=== PATIENT | male | born 1945 | race Caucasian/White ===

== ENCOUNTER → 2016-04-08 | Outpatient (CLI) | payer BC ==
[~2016-04-08] MED LIST: ALFU10TA30 PO; CMD5 PO; CYAN100020 PO; FINA5TAB PO; FLV1 PO; HYDR-5688 PO; RANI150T3 PO; WARF-237 PO
[2016-04-08 12:48] LABS: ESTIMATED AVERAGE GLUCOSE 126 mg/dl; HA1C FLAG Normal (Normal)
== END | disposition home or self-care (01) ==
LOC: C.LABPVFM 13:43
PROVIDERS: ATTEND Family Medicine
DX: R73.09 Other abnormal glucose (principal); I26.99 Other pulmonary embolism without acute cor pulmonale

== ENCOUNTER → 2017-02-11 | Outpatient (CLI) | payer BC ==
[~2017-02-11] MED LIST changes: +ALFU10TA2 PO; -ALFU10TA30 PO
[2017-02-12 06:39] LABS: ESTIMATED AVERAGE GLUCOSE 123 mg/dl; HA1C FLAG Normal (Normal)
== END | disposition home or self-care (01) ==
LOC: C.LABPVFM 14:51
PROVIDERS: ATTEND Family Medicine
DX: I26.99 Other pulmonary embolism without acute cor pulmonale (principal)

== ENCOUNTER → 2017-03-14 | Outpatient (CLI) | payer BC | END | disposition home or self-care (01) | LOC: C.LABPVFM 13:24 | PROVIDERS: ATTEND Urology | DX: R97.20 Elevated prostate specific antigen [PSA] (principal); I26.99 Other pulmonary embolism without acute cor pulmonale ==

== ENCOUNTER 2022-02-11 16:04 | Inpatient (IN) ==
--- NOTE | 2022-02-11 17:24 | XRay Report ---
XR chest 1V portable HISTORY: 76 years-old Male SOB acute shortness of breath COMPARISON: Chest radiograph 11/01/2019 TECHNIQUE: Portable AP view of the chest FINDINGS: Cardiac silhouette is enlarged. Mild chronic interstitial coarsening of the lung bases. Hiatal hernia . No pneumothorax, pleural effusion or overt pulmonary edema. No airspace consolidation typical for p neumonia. Degenerative changes of the shoulders and spine. IMPRESSION: 1. Cardiomegaly without acute process. 2. Hiatal hernia. ACT 112: Negative or not required by law. The above report was generated using voice recognition software. It may contain grammatical, syntax o r spelling errors. Electronically signed by: Diego Mckeon M.D. 02/11/2022 5:23 PM
[2022-02-11 17:50] LABS: Partial Thromboplastin Ratio 0.9; Partial Thromboplastin Time 23.7 Seconds (21.0-31.0); Prothrombin Time 10.5 Seconds (9.0-12.0)
[2022-02-11 17:57] LABS: Hematocrit (blood only) 41.9 % (40.1-51.0); Mean Corpuscular Hemoglobin 30.6 pg (25.0-34.0); Mean Corpuscular Hgb Conc 33.4 g/dL (32.0-36.0); Mean Corpuscular Volume 91.5 fL (80.0-100.0); Mean Platelet Volume 9.7 fL (9.4-12.4); Platelet Count 148 K/uL (130-400); RDW Coefficient of Variation 12.8 % (11.5-14.5); RDW Standard Deviation 42.6 fL (36.4-46.3); Red Blood Count 4.58 M/uL (4.63-6.08); White Blood Count 4.68 K/ul (4.8-10.8)
[2022-02-11 17:59] LABS: Basophils # (auto) 0.04 K/uL (0-0.2); Basophils % (auto) 0.9 %; Eosinophils # (auto) 0.19 K/uL (0-0.50); Eosinophils % (auto) 4.1 %; Immature Granulocytes # (auto) 0.02 K/uL (0.00-0.02); Immature Granulocytes % (auto) 0.4 %; Lymphocytes # (auto) 1.08 K/uL (1.2-3.4); Lymphocytes % (auto) 23.1 %; Monocytes # (auto) 0.52 K/uL (0.24-0.82); Monocytes % (auto) 11.1 %; Neutrophils # (auto) 2.83 K/uL (1.4-6.5); Neutrophils % (auto) 60.4 %
[2022-02-11 18:11] LABS: Albumin Globulin Ratio 1.4 (0.9-2); BUN Creatinine Ratio 20.5 (10-20); Bilirubin,Total 0.4 mg/dl (0.2-1.0); Calcium 9.1 mg/dl (8.5-10.1); Creatinine Clr Calc Pharmacy 103.4 ml/min; Est GFR (African American) 105.9 ml/min; Est GFR (Non-African American) 91.4 ml/min; Globulin 2.9 gm/dl (2.5-4.0); Potassium 3.4 mmol/L (3.5-5.1); Total Protein 6.9 gm/dl (6.0-8.3); Troponin I High Sensitivity 8.5 pg/ml (0-20)
[2022-02-11] MEDS ORDERED: OPTIRAY 320 500ml IV ONE (20:41)
[2022-02-11] MEDS ORDERED: SODIUM CHLORIDE 0.9% 1000ML 1,000 ML IV ONE (21:08)
[2022-02-11] MEDS ORDERED: ALBUT/IPRATROP 3MG/0.5MG NEB 3 ML VIAL NEB STA (21:08)
[2022-02-11] MEDS ORDERED: BENZONATATE 100 MG CAPSULE PO ONE (21:09)
--- NOTE | 2022-02-11 21:14 | Emergency Department Note ---
Impression & Plan Pulmonary emboli, NATHAN (dyspnea on exertion) ED Provider Note NAME: ARTURO SHAFFER AGE: 76 SEX: M : 1945 ARRIVES VIA: Walk-In INFORMANT: Patient, ED PROVIDER(S): [Praveen Patrick MD] Chief Complaint: SOB, outpatient referral HPI: Patient presents due to concern for shortness of breath. The patient states that he does not have this at rest but it is exertional in nature. The patient has had an ongoing for approximately 3 weeks this began when he had developed COVID. Patient is not vaccinated. The patient has had a productive cough but states that it is generally clear sputum. Non-smoker. Patient had discussed this with his primary care doctor and was referred here for further evaluation and treatment. The patient is a prior history of PEs in the past and had not been on anticoagulation for several years but had sustained a traumatic head bleed 3 to 4 years ago and was taken off of them. Patient denies any chest pains. Patient denies any orthopnea leg swelling or calf pain. No recent surgeries procedures or hospitalizations. Patient has taken [id number] medications but has not achieved significant relief in his symptoms. Patient denies any falls or trauma. No additional exacerbating or remitting factors. ROS: See HPI for pertinent positives and negatives. A total of 10 systems were reviewed and otherwise negative. Past medical history: See below Surgical history: See below Social history: See below Physical Exam: GENERAL: NAD, [wearing a mask,] non-toxic. Wearing glasses. EYE EXAM: Normal conjunctiva. PERRL, no anisocoria and EOM's grossly intact w/o pain. NECK: Supple, no nuchal rigidity, no adenopathy, non-tender. No signs of meningismus. FROM of the neck with good chin to chest and neck extension. No stridor. LUNGS: Clear to auscultation. Normal chest wall mechanics. HEART: Tachycardic and regular, no MRG. ABDOMEN: Abdomen soft, non-tender, normo-active bowel sounds, no masses, no rebound or guarding. BACK: No CVA TTP. SKIN: No rashes and no bruising. UPPER EXTREMITIES: Upper extremities are grossly normal. LOWER EXTREMITIES: Grossly normal, no edema. Negative Martita's sign b/l. NEURO EXAM: A&O x3, cranial nerves II-XII grossly intact, normal speech, moves all 4 extremities. Differential diagnoses: Reactive airway disease, pneumonia, pneumothorax, COPD, CHF, infections, cardiac ischemia, pulmonary embolism, musculoskeletal, gastrointestinal, as well as other pathologies. Course: Patient was seen and evaluated the bedside. Full history physical exam was performed. EKG interpreted by me Sinus tachycardia, rate of 103, prolonged [place], normal QRS, normal axis. No ST elevations. Imaging Studies: See Below Cardiac monitoring: An order was placed for continuous cardiac monitoring. The monitor shows a rate of 102 with tachycardic and regular rhythm. MDM: Patient was seen due to concern for exertional shortness of breath. Blood work was obtained along with a CT angiography of the chest. Patient's blood work showed mild leukopenia with no anemia. Platelet count is normal. The patient's kidney function is unremarkable. Troponin is not elevated. The patient's chest x-ray with no significant findings and CT angiography of the chest was concerning for extensive pulmonary emboli. The patient has been off his blood thinning medication for several years and he has not had a recent traumatic ICH and states that this did occur several years ago. Currently I do believe that the benefits outweigh the risks as the patient does have extensive PEs. Heparin standard was ordered with no bolus. I did speak the on-call hospitalist Dr. Page and the patient was admitted to the medicine service. I did update the patient of the findings and he is comfortable with plan of care. Critical Care: I have personally spent 42 minutes of critical care time in direct management of this patient. This includes bedside care, interpretation of diagnostic studies, and testing, discussion with consultants, patient, and family members, and other require inpatient management activities. This 42 minutes is in excess of all separately billable procedures. 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 Surgical History H/O shoulder surgery Rt History of appendectomy (05/17/12) History of foot surgery Left History of knee replacement Rt History of right inguinal hernia repair History of surgery endovascular embolization of left middle meningeal artery Family History Mother Diabetes Other No family history of adverse response to anesthesia Denies family history of Ovarian cancer Prostate cancer Myocardial infarction Breast cancer Colorectal cancer Social History Smoking Status: Never smoker Second Hand Exposure: No; Hx Alcohol Use: No Hx Substance Use: No Preferred Language: Burmese Communication Ability: Effective Visual Impairment: No Limitations Hearing Ability: Use of Hearing Aid 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: No Beliefs That Will Affect Care: None marital status: Current Living Situation: Spouse current occupational status: retired How many Children do You have: 3 Other Information That Helps Us Care for You: No Feels Safe at Home: Yes Childhood Exposure to Second-Hand Smoke: Yes caffeine: Yes Dental Care, Regularly: No Physical Activity Frequency: Daily Seatbelt Use: never Sunscreen Use: No Assistive Devices: Hearing Aid - Bilateral Allergies Allergies Allergy/AdvReac Type Severity Reaction Status Date / Time No Known Allergies Allergy Verified 02/11/22 14:31 Home Meds Home Medications Medication Instructions Recorded Confirmed diclofenac sodium 1 % topical gel 2 g topical DIRECTED PRN Joint 11/10/18 02/11/22 Pain Previous Rx's Medication Instructions Recorded omeprazole magnesium 20 mg 20 mg PO DAILY Acid Reflux #30 tabs 08/16/21 tablet,delayed release (Prilosec OTC) atorvastatin 20 mg tablet 20 mg PO QPM #90 tabs 10/01/21 alfuzosin 10 mg tablet,extended 10 mg PO DAILY #90 tabs 10/04/21 release 24 hr (Uroxatral) finasteride 5 mg tablet (Proscar) 5 mg PO DAILY #90 tabs 10/04/21 Results & Data (ED) Vital Signs Vital Signs - 24 hr 02/11/22 16:32 02/11/22 21:00 02/11/22 21:30 Temperature 37.3 C Temperature Source Temporal Artery Scan Pulse Rate 110 H 101 H 98 H Pulse Rate from SpO2 Sensor 101 H Respiratory Rate 20 22 24 Blood Pressure 169/95 H 141/86 H 135/92 Blood Pressure Mean 119 104 106 Blood Pressure Position Sitting Pulse Oximetry 92 91 Oxygen Delivery Method Room Air Sepsis Recent Fever Within 48 Hours No Sepsis New/Unexplained Change in Mental Status No Sepsis Action Taken by Nursing No Action Required 02/11/22 22:00 02/11/22 22:30 02/11/22 23:00 Temperature Temperature Source Pulse Rate 101 H 98 H 99 H Pulse Rate from SpO2 Sensor 99 H 82 Respiratory Rate 22 21 17 Blood Pressure 134/90 149/94 H 133/85 Blood Pressure Mean 104 112 101 Blood Pressure Position Pulse Oximetry 91 93 Oxygen Delivery Method Sepsis Recent Fever Within 48 Hours Sepsis New/Unexplained Change in Mental Status Sepsis Action Taken by Residential Medications Current Medication List: was personally reviewed by me Laboratory Data Attestation: I reviewed the patient's lab results. Result diagrams: 02/12/22 06:03 02/12/22 06:03 Lab Results 02/11/22 02/11/22 02/11/22 Range/Units 17:20 17:20 17:20 WBC 4.68 L (4.8-10.8) K/ul RBC 4.58 L (4.63-6.08) M/uL Hgb 14.0 (14.0-18.0) g/dl Hct 41.9 (40.1-51.0) % MCV 91.5 (80.0-100.0) fL MCH 30.6 (25.0-34.0) pg MCHC 33.4 (32.0-36.0) g/dL RDW Std Deviation 42.6 (36.4-46.3) fL RDW Coeff of Barbie 12.8 (11.5-14.5) % Plt Count 148 (130-400) K/uL MPV 9.7 (9.4-12.4) fL Immature Gran % (Auto) 0.4 % Neut % (Auto) 60.4 % Lymph % (Auto) 23.1 % Floyd % (Auto) 11.1 % Eos % (Auto) 4.1 % Baso % (Auto) 0.9 % Neut # (Auto) 2.83 (1.4-6.5) K/uL Lymph # (Auto) 1.08 L (1.2-3.4) K/uL Floyd # (Auto) 0.52 (0.24-0.82) K/uL Eos # (Auto) 0.19 (0-0.50) K/uL Baso # (Auto) 0.04 (0-0.2) K/uL Immature Gran # (Auto) 0.02 (0.00-0.02) K/uL PT 10.5 (9.0-12.0) Seconds INR 1.0 (0.9-1.1) APTT 23.7 (21.0-31.0) Seconds PTT Ratio 0.9 Sodium 140 (136-145) mmol/L Potassium 3.4 L (3.5-5.1) mmol/L Chloride 106 (98-107) mmol/L Carbon Dioxide 27 (21-32) mmol/L Anion Gap 7 (3-11) BUN 15 (6-23) mg/dl Creatinine 0.73 (0.6-1.4) mg/dl Est Cr Clr Drug Dosing 103.4 ml/min Est GFR ( Amer) 105.9 ml/min Est GFR (Non-Af Amer) 91.4 ml/min BUN/Creatinine Ratio 20.5 H (10-20) Glucose 96 (70-99(Fasting)) mg/dl Calcium 9.1 (8.5-10.1) mg/dl Magnesium 2.0 (1.7-2.4) mg/dl Total Bilirubin 0.4 (0.2-1.0) mg/dl AST 12 L (13-39) U/L ALT 15 (7-52) U/L Alkaline Phosphatase 93 (34-104) U/L Troponin I High Sens 8.5 (0-20) pg/ml Total Protein 6.9 (6.0-8.3) gm/dl Albumin 4.0 (3.4-5.0) gm/dl Globulin 2.9 (2.5-4.0) gm/dl Albumin/Globulin Ratio 1.4 (0.9-2) Administered Medications Alfuzosin HCl (Alfuzosin Hcl 10 Mg Tab) 10 mg PO DAILY [facility] Stop: 03/14/22 08:59 Last Admin: 02/12/22 08:20 Dose: 10 mg Documented By: BETH Finasteride (Finasteride 5 Mg Tab) 5 mg PO DAILY [facility] Stop: 03/14/22 08:59 Last Admin: 02/12/22 08:20 Dose: 5 mg Documented By: BETH Heparin Sodium/Dextrose (Heparin Sodium/Dextrose) 25,000 units in 500 mls @ 32 mls/hr IV .[id number] [facility]; Protocol Stop: 03/13/22 22:59 Last Titration: 02/12/22 07:38 Dose: 1,600 units/hr, 32 mls/hr Documented By: BETH Co-signed By: TOPHER Admin: 02/11/22 23:34 Dose: 1,500 units/hr, 30 mls/hr Documented By: WAYNE Co-signed By: KASHMIR Pantoprazole Sodium (Pantoprazole 40 Mg Tab) 40 mg PO DAILY [facility] Stop: 03/14/22 08:59 Last Admin: 02/12/22 08:20 Dose: 40 mg Documented By: BETH Discontinued Medications Albuterol (Albut/Ipratrop 3mg/0.5mg Neb 3 Ml Vial) 3 ml NEB NOW STA; Protocol Stop: 02/11/22 21:09 Last Admin: 02/11/22 21:31 Dose: 3 ml Documented By: WAYNE Benzonatate (Benzonatate 100 Mg Capsule) 100 mg PO NOW ONE Stop: 02/11/22 21:10 Last Admin: 02/11/22 21:31 Dose: 100 mg Documented By: WAYNE Heparin Sodium/Dextrose (Heparin Iv Adult Wt-Based Standard *No* Bolus Protocol) 1 each IV ONE ONE; Protocol Stop: 02/11/22 21:47 Last Admin: 02/11/22 23:49 Dose: Not Given Documented By: WAYNE Sodium Chloride (Nss 1000ml) 1,000 mls @ 999 mls/hr IV .Q1H1M ONE Stop: 02/11/22 22:08 Last Infusion: 02/11/22 22:35 Dose: 0 mls/hr Documented By: Admin: 02/11/22 21:33 Dose: 999 mls/hr Documented By: WAYNE Heparin Sodium/Dextrose (Heparin Sodium/Dextrose) 25,000 units in 500 mls @ 0.02 mls/hr IV .Q24H [facility]; Protocol Stop: 03/13/22 22:14 Last Admin: 02/11/22 23:53 Dose: Not Given Documented By: WAYNE Ioversol (Optiray 320 500ml) 115 ml IV ONCE ONE Stop: 02/11/22 20:42 Last Admin: 02/11/22 20:42 Dose: 115 ml Documented By: AMY Potassium Chloride (Potassium Chloride Crtab 20 Meq Tabcr) 40 meq PO NOW STA Stop: 02/12/22 00:56 Last Admin: 02/12/22 02:00 Dose: 40 meq Documented By: WAYNE Imaging Data Radiologist's Impression: Chest X-Ray 02/11/22 16:35 XR chest 1V portable HISTORY: 76 years-old Male SOB acute shortness of breath COMPARISON: Chest radiograph 11/01/2019 TECHNIQUE: Portable AP view of the chest FINDINGS: Cardiac silhouette is enlarged. Mild chronic interstitial coarsening of the lung bases. Hiatal hernia. No pneumothorax, pleural effusion or overt pulmonary edema. No airspace consolidation typical for pneumonia. Degenerative changes of the shoulders and spine. IMPRESSION: 1. Cardiomegaly without acute process. 2. Hiatal hernia. ACT 112: Negative or not required by law. The above report was generated using voice recognition software. It may contain grammatical, syntax or spelling errors. Electronically signed by: Diego Mckeon M.D. 02/11/2022 5:23 PM Chest X-Ray 02/11/22 16:35 XR chest 1V portable HISTORY: 76 years-old Male SOB acute shortness of breath COMPARISON: Chest radiograph 11/01/2019 TECHNIQUE: Portable AP view of the chest FINDINGS: Cardiac silhouette is enlarged. Mild chronic interstitial coarsening of the lung bases. Hiatal hernia. No pneumothorax, pleural effusion or overt pulmonary edema. No airspace consolidation typical for pneumonia. Degenerative changes of the shoulders and spine. IMPRESSION: 1. Cardiomegaly without acute process. 2. Hiatal hernia. ACT 112: Negative or not required by law. The above report was generated using voice recognition software. It may contain grammatical, syntax or spelling errors. Electronically signed by: Diego Mckeon M.D. 02/11/2022 5:23 PM Chest CTA 02/11/22 18:44 CT angio chest PE protocol CT DOSE: 624.99 mGy.cm HISTORY: 76 years-old Male with PE, sob. Acute shortness of breath with cough TECHNIQUE: Multiple CTA images of the chest were obtained after the intravenous administration of 115 ml Optiray. Coronal and sagittal MIPS were obtained from the axial data set and were submitted for review. All measurements were obtained according to NASCET criteria. A dose lowering technique was utilized adhering to the principles of ALARA. COMPARISON: Chest radiograph of same day, CTA chest 03/05/2013 FINDINGS: CTA: Mild cardiomegaly. Moderate coronary artery calcifications. Is unremarkable thoracic aorta. There is a considerable amount of acute-appearing pulmonary emboli within the right greater than left lobar, segmental and subsegmental branches with pulmonary embolus also present within the distal aspect of the right main pulmonary artery. No saddle pulmonary embolus. Mild straightening of the intraventricular septum. CT CHEST: Unremarkable thyroid. No lymphadenopathy. Trace pleural effusions. No pneumothorax or airspace consolidation typical for pneumonia. There are no suspicious pulmonary nodules or masses identified. There are a few subcentimeter solid pulmonary nodules noted within the left lower lobe measuring up to 4 mm which are stable and benign. Central airways are patent. Large hiatal hernia with mid to distal esophageal wall thickening. Small amount of fluid surrounds the hernia sac. Hepatic steatosis. No acute process of the imaged upper abdomen. Unremarkable soft tissues. No acute fracture. IMPRESSION: 1. Extensive acute-appearing pulmonary emboli with findings suggestive of associated right heart strain. 2. Large hiatal hernia with trace associated fluid adjacent to the hernia sac. ACT 112: Negative or not required by law. The above report was generated using voice recognition software. It may contain grammatical, syntax or spelling errors. Electronically signed by: Diego Mckeon M.D. 02/11/2022 9:26 PM Discharge Plan Visit Data Chief Complaint: Referred by Doctor Stated Complaint: REFERRED BY DOC, CT SCAN,BLOOD WORK, BLOOD CLOTS ED Provider: Praveen Patrick Discharge Problem: Pulmonary emboli, NATHAN (dyspnea on exertion) Patient Disposition: Admitted As Inpatient Discharge Instructions Interventions: ED Discharge Assessment Last Done: 02/12/22 00:56
--- NOTE | 2022-02-11 21:29 | CT Scan Report ---
CT angio chest PE protocol CT DOSE: 624.99 mGy.cm HISTORY: 76 years-old Male with PE, sob. Acute shortness of breath with cough TECHNIQUE: Multiple CTA images of the chest were obtained after the intravenous administration of 115 ml Optiray. Coronal and sagittal MIPS were obtained from the axial data set and were submitted for review. All measurements were obtained according to NASCET criteria. A dose lowering technique was u tilized adhering to the principles of ALARA. COMPARISON: Chest radiograph of same day, CTA chest 03/05/2013 FINDINGS: CTA: Mild cardiomegaly. Moderate coronary artery calcifications. Is unremarkable thoracic aorta. There is a considerable amount of acute-appearing pulmonary emboli within the right greater than left lobar, s egmental and subsegmental branches with pulmonary embolus also present within the distal aspect of th e right main pulmonary artery. No saddle pulmonary embolus. Mild straightening of the intraventricula r septum. CT CHEST: Unremarkable thyroid. No lymphadenopathy. Trace pleural effusions. No pneumothorax or airspace consol idation typical for pneumonia. There are no suspicious pulmonary nodules or masses identified. There are a few subcentimeter solid pulmonary nodules noted within the left lower lobe measuring up to 4 mm which are stable and benign. Central airways are patent. Large hiatal hernia with mid to distal esophageal wall thickening. Small amount of fluid surrounds th e hernia sac. Hepatic steatosis. No acute process of the imaged upper abdomen. Unremarkable soft tiss ues. No acute fracture. IMPRESSION: 1. Extensive acute-appearing pulmonary emboli with findings suggestive of associated right heart stra in. 2. Large hiatal hernia with trace associated fluid adjacent to the hernia sac. ACT 112: Negative or not required by law. The above report was generated using voice recognition software. It may contain grammatical, syntax o r spelling errors. Electronically signed by: Diego Mckeon M.D. 02/11/2022 9:26 PM
[2022-02-11] MEDS ORDERED: Heparin IV Adult Wt-Based Standard *NO* Bolus Protocol IV ONE (21:46)
[2022-02-11] MEDS ORDERED: HEPARIN SODIUM/DEXTROSE 25,000 UNITS/500 ML BAG IV SCH (22:15)
[2022-02-11] MEDS ORDERED: Heparin IV Adult Wt-Based Standard *NO* Bolus Protocol IV SCH (22:41)
--- NOTE | 2022-02-11 22:48 | History & Physical Report ---
Date of Service February 11, 2022 Assessment & Plan (1) Bilateral pulmonary embolism: Plan: CTA chest showed extensive acute-appearing pulmonary emboli with findings suggestive of associated right heart strain. ?Provoked due to recent COVID-19 infection. However patient had h/o bilateral PEs in 2012 without clear provoking factor at that time. - check TTE - continue Heparin gtt (was given WITHOUT bolus) - ordered hypercoagulability panel (note: blood was drawn BEFORE initiation of Heparin) - consider DOAC vs Lovenox for long-term anti-coagulation, especially considering h/o traumatic brain bleed (see below) - utilize supplemental O2 as needed to maintain sats >90% (no hypoxia currently) (2) H/O traumatic subdural hematoma: Plan: History of, in 2019 due to accidental head injury, s/p endovascular embolization of left middle meningeal artery at [place]. 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 - Heparin gtt as stated above - Q2H Neuro checks for now, given h/o bleed (3) History of COVID-19: Plan: History of, diagnosed 3 weeks ago. Has had cough and SOB for last several weeks likely due to PEs. May have provoked PEs as stated above. - COVID-19 test is ordered and pending (4) Methylenetetrahydrofolate reductase deficiency: Plan: History of. Does not confer increased clotting risk, per last Hematology note. - hypercoagulability panel as stated above (5) Hypokalemia: Plan: K 3.4. Replete with PO K. (6) Hyperlipidemia: Plan: Chronic, continue home Atorvastatin. (7) GERD (gastroesophageal reflux disease): Plan: Chronic, with hiatal hernia per imaging. Controlled on PPI - use Protonix while here. (8) BPH (benign prostatic hyperplasia): Plan: Chronic, continue home Alfuzosin and Finasteride Plan FEN/GI: regular diet DVT Prophylaxis: Heparin gtt Code Status: full code Disposition: PCU History of Present Illness Chief Complaint: referred by doctor Primary Care Provider: Izabel Godfrey MD Santiago Bell is a 76yo male with PMHx significant for previous bilateral PE (in 2013, was on Warfarin until 2019), h/o traumatic subdural hematoma (in 2019 due to accidental head injury, s/p endovascular embolization of left middle meningeal artery at [place]), HTN, HLD, GERD, and BPH. He presented to [facility] ED on 02/11 due to progressive cough and dyspnea on exertion x2-3 weeks, following COVID-19 infection 3 weeks ago. Denies recent travel, long car/plane ride, recent surgery, prolonged bedrest, or trauma. Patient reports that he had bilateral PEs in 2012 that "affected 40% of his lungs". He reports that a large bale of hay fell on his leg ~1 month before the PEs. He was hospitalized at that time and started on Heparin --> Warfarin. He bronson d taken that until 2019 when a farming tool fell on his head and he sustained a traumatic subdural hematoma, requiring endovascular correction at [facility] as stated above. Initially anti-coagulation was understandably stopped but of note patient saw Neurosurgery after the hospitalization and was told he can re-start Warfarin. Additionally patient also saw Hematology at that time and was recommended to re- start Warfarin as well, given ?unprovoked nature of previous PEs. However elected to NOT re-start anti-coagulation at that time. Patient denies fever/chills, nasal congestion, runny nose, chest pain, N/V, abdominal pain, diarrhea or rash. He is a never smoker, denies alcohol use and denies drug use. 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 In the ED the patient was tachycardic to 115 and hypertensive to 169/95; no hypoxia. Labs including CBC/INR/PT/PTT/CMP/hsTrop all unremarkable besides for K 3.4. CXR showed cardiomegaly as well as hiatal hernia, and CTA chest showed extensive acute-appearing pulmonary emboli with findings suggestive of associated right heart strain, as well as large hiatal hernia. In ED patient was given Albuterol nebs x1, Benzonatate PO x1 and NSS 1L bolus. He was also started on Heparin gtt WITHOUT bolus. Allergies Allergy/AdvReac Type Severity Reaction Status Date / Time No Known Allergies Allergy Verified 02/11/22 14:31 Home Medications Medication Instructions Recorded Confirmed Type diclofenac sodium 1 % topical gel 2 g topical DIRECTED PRN Joint 11/10/18 02/11/22 History Pain omeprazole magnesium 20 mg 20 mg PO DAILY Acid Reflux #30 tabs 08/16/21 02/11/22 Rx tablet,delayed release (Prilosec OTC) atorvastatin 20 mg tablet 20 mg PO QPM #90 tabs 10/01/21 02/11/22 Rx alfuzosin 10 mg tablet,extended 10 mg PO DAILY #90 tabs 10/04/21 02/11/22 Rx release 24 hr (Uroxatral) finasteride 5 mg tablet (Proscar) 5 mg PO DAILY #90 tabs 10/04/21 02/11/22 Rx Past Med/Surg History Medical History Elevated prostate specific antigen (PSA) Hearing loss [facility] Hiatal hernia History of pulmonary embolism Around 2012 - unk etiology -- treated w/ AC - was on AC until 11/2018- d/kristofer after head injury- no issues since that time History of traumatic subdural hematoma 11/2018 Methylenetetrahydrofolate reductase deficiency Follows with heme. Surgical History H/O shoulder surgery Rt History of appendectomy (05/17/12) History of foot surgery Left History of knee replacement Rt History of right inguinal hernia repair History of surgery endovascular embolization of left middle meningeal artery Family History Mother Diabetes Other No family history of adverse response to anesthesia Denies family history of Ovarian cancer Prostate cancer Myocardial infarction Breast cancer Colorectal cancer Social History Smoking Status: Never smoker Second Hand Exposure: No; Hx Alcohol Use: No Hx Substance Use: No Preferred Language: Setswana Communication Ability: Effective Visual Impairment: No Limitations Hearing Ability: Use of Hearing Aid Sccm Administrator Required: No Beliefs That Will Affect Care: None marital status: Current Living Situation: Spouse current occupational status: retired How many Children do You have: 3 Feels Safe at Home: Yes Childhood Exposure to Second-Hand Smoke: Yes caffeine: Yes Dental Care, Regularly: No Physical Activity Frequency: Daily Seatbelt Use: never Sunscreen Use: No Assistive Devices: Hearing Aid - Bilateral Review of Systems Review of Systems: All systems reviewed & are unremarkable except as noted in HPI & below Physical Exam Physical Exam: General: A&Ox3. NAD. Cooperative. HEENT: Atraumatic, normocephalic. Pulm: CTAB A&P. -wheezes, -rales, -rhonchi. Symmetrical chest rise. No increase work of breathing. No respiratory distress. Cardiac: RRR, -mrg. Radial pulses intact and symmetrical. No LE edema. Abdominal: soft, non-tender, non-distended, BS x 4 Skin: warm, dry, no rash Results & Data Results & [facility] ([facility]) Vital Signs (Past 12 Hours) Vital Signs Temp Pulse Resp BP Pulse Ox O2 Del Method 02/11/22 21:30 98 H 24 135/92 02/11/22 21:00 101 H 22 141/86 H 91 02/11/22 16:32 37.3 C 110 H 20 169/95 H 92 Room Air Supervising Physician Co-Signing Physician Notes Attending addendum: I have physically seen this patient, have supervised the medical residents activities, and agree with the H&P unless as otherwise noted. Assessment and Plan: Bilateral pulmonary emboli- Right greater than left lobar/segmental and subsegmental PEs Distal right mainstem PE Question of associated right heart strain Heparin drip without bolus The patient will be admitted to telemetry for serial cardiac enzymes, serial EKG's, cardiac rhythm monitoring and a 2-D echocardiogram with Dopplers. Hypercoagulable work-up Recent COVID-19 infection May be in part responsible Patient does have history of bilateral PEs in 2013 History of traumatic subdural hematoma- Status post endovascular embolization of left middle meningeal artery at [facility] in [place]. Neurosurgery and hematology follow-up at that time reported that restarting the patient on ED coagulation chronically was acceptable Remaining orders and notations as noted Resident Activity Tracking Resident Involvement: Resident Care Provided Care Provided: Adult [facility] Medicine
[2022-02-11] MEDS: HEPARIN SODIUM/DEXTROSE 25,000 UNITS/500 ML BAG IV SCH (23:34)
[2022-02-12] MEDS ORDERED: POTASSIUM CHLORIDE CRTAB 20 MEQ TABCR PO STA (00:55)
[2022-02-12] MEDS ORDERED: ACETAMINOPHEN 325 MG TAB PO PRN (00:55)
[2022-02-12 06:46] LABS: Hematocrit (blood only) 38.7 % (40.1-51.0); Hemoglobin 12.8 g/dl (14.0-18.0); Mean Corpuscular Hemoglobin 30.6 pg (25.0-34.0); Mean Corpuscular Hgb Conc 33.1 g/dL (32.0-36.0); Mean Corpuscular Volume 92.6 fL (80.0-100.0); Mean Platelet Volume 9.9 fL (9.4-12.4); Platelet Count 140 K/uL (130-400); RDW Coefficient of Variation 12.8 % (11.5-14.5); RDW Standard Deviation 43.7 fL (36.4-46.3); Red Blood Count 4.18 M/uL (4.63-6.08); White Blood Count 4.49 K/ul (4.8-10.8)
[2022-02-12 06:47] LABS: Partial Thromboplastin Ratio 1.5; Partial Thromboplastin Time 39.9 Seconds (21.0-31.0)
[2022-02-12 06:58] LABS: Basophils # (auto) 0.04 K/uL (0-0.2); Basophils % (auto) 0.9 %; Eosinophils # (auto) 0.22 K/uL (0-0.50); Eosinophils % (auto) 4.9 %; Immature Granulocytes # (auto) 0.05 K/uL (0.00-0.02); Immature Granulocytes % (auto) 1.1 %; Lymphocytes # (auto) 1.03 K/uL (1.2-3.4); Lymphocytes % (auto) 22.9 %; Monocytes # (auto) 0.44 K/uL (0.24-0.82); Monocytes % (auto) 9.8 %; Neutrophils # (auto) 2.71 K/uL (1.4-6.5); Neutrophils % (auto) 60.4 %
[2022-02-12 07:18] LABS: BUN Creatinine Ratio 16.2 (10-20); Calcium 8.5 mg/dl (8.5-10.1); Creatinine Clr Calc Pharmacy 111.1 ml/min; Est GFR (Non-African American) 94.1 ml/min; Potassium 4.2 mmol/L (3.5-5.1)
[2022-02-12] MEDS: ALFUZOSIN HCL 10 MG TAB PO SCH (08:20)
[2022-02-12] MEDS: PANTOprazole 40 MG TAB PO SCH (08:20)
[2022-02-12] MEDS: FINASTERIDE 5 MG TAB PO SCH (08:20)
--- NOTE | 2022-02-12 13:15 | XCELERA ---
[id number]
[2022-02-12 15:07] LABS: Partial Thromboplastin Ratio 1.3; Partial Thromboplastin Time 36.5 Seconds (21.0-31.0)
[2022-02-12] MEDS: HEPARIN SODIUM/DEXTROSE 25,000 UNITS/500 ML BAG IV SCH ×2 (15:30→16:15)
[2022-02-12] MEDS ORDERED: HEPARIN IV BOLUS 3,000 UNITS in SYRINGE 0 ML IV ONE (15:45)
--- NOTE | 2022-02-12 16:33 | Electrocardiogram Report ---
Test Reason : Blood Pressure : / mmHG Vent. Rate : 103 BPM Atrial Rate : 103 BPM P-R Int : 204 ms QRS Dur : 086 ms QT Int : 358 ms P-R-T Axes : 049 061 063 degrees QTc Int : 468 ms Sinus tachycardia Otherwise normal ECG When compared with ECG of 01-NOV-2019 12:50, No significant change was found Confirmed by Kenneth Bruno ([id number]) on 02/12/2022 4:32:30 PM Referred By: Izabel Godfrey Confirmed By:Kenneth Bruno
[2022-02-12] MEDS: ATORVASTATIN 20 MG TAB PO SCH (19:54)
--- NOTE | 2022-02-12 20:10 | Hospitalist Progress Note ---
Date of Service February 12, 2022 Assessment & Plan (1) Bilateral pulmonary embolism: Plan: CTA chest showed extensive acute-appearing pulmonary emboli with findings suggestive of associated right heart strain. ?Provoked due to recent COVID-19 infection. However patient had h/o bilateral PEs in 2012 without clear provoking factor at that time. - check TTE - continue Heparin gtt (was given WITHOUT bolus) - ordered hypercoagulability panel (note: blood was drawn BEFORE initiation of Heparin) - consider DOAC vs Lovenox for long-term anti-coagulation, especially considering h/o traumatic brain bleed (see below) - utilize supplemental O2 as needed to maintain sats >90% -Patient is now on nasal cannula, -will transition him to Eliquis overnight and dc heparin drip. (2) H/O traumatic subdural hematoma: Plan: History of, in 2019 due to accidental head injury, s/p endovascular embolization of left middle meningeal artery at [place]. 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 - Heparin gtt as stated above - will stop q2h of neuro checks. (3) History of COVID-19: Plan: History of, diagnosed 3 weeks ago. Has had cough and SOB for last several weeks likely due to PEs. May have provoked PEs as stated above. - COVID-19 test is ordered. (4) Methylenetetrahydrofolate reductase deficiency: Plan: History of. Does not confer increased clotting risk, per last Hematology note. - hypercoagulability panel as stated above (5) Hypokalemia: Plan: K 3.4. Replete with PO K. (6) Hyperlipidemia: Plan: Chronic, continue home Atorvastatin. (7) GERD (gastroesophageal reflux disease): Plan: Chronic, with hiatal hernia per imaging. Controlled on PPI - use Protonix while here. (8) BPH (benign prostatic hyperplasia): Plan: Chronic, continue home Alfuzosin and Finasteride Plan FEN/GI: regular diet DVT Prophylaxis: Heparin gtt Code Status: full code Disposition: PCU Admission and Anticipated Discharge Date Admission Date: February 11, 2022 Subjective 76 yo male reports no new symptoms. He continues to require oxygen/ Review of Systems Review of Systems: All systems reviewed & are unremarkable except as noted in HPI & below Physical Exam Physical Exam: General: A&Ox3. NAD. Cooperative. HEENT: Atraumatic, normocephalic. Pulm: CTAB A&P. -wheezes, -rales, -rhonchi. Symmetrical chest rise. No increase work of breathing. No respiratory distress. Cardiac: RRR, -mrg. Radial pulses intact and symmetrical. No LE edema. Abdominal: soft, non-tender, non-distended, BS x 4 Skin: warm, dry, no rash Results & Data Results & [facility] ([facility]) Vital Signs (Past 12 Hours) Vital Signs Pulse Resp BP Pulse Ox O2 Del Method O2 Flow Rate 02/12/22 15:28 129/80 02/12/22 14:50 Nasal Cannula 2 02/12/22 12:10 88 19 138/93 91 Room Air PG Care Time/CCT Total # of Minutes Spent Total Time Spent with Patient: Total time spent is greater than 50% in coordination of care (as documented) at patient's floor/unit and/or counseling patient: Coding Level of Care Code 63681 Subseq Hosp Care Lvl 2 Diagnoses Bilateral pulmonary embolism I26.99 H/O traumatic subdural hematoma Z87.828 History of COVID-19 Z86.16 Methylenetetrahydrofolate reductase deficiency E72.12 Hypokalemia E87.6 Hyperlipidemia E78.5 GERD (gastroesophageal reflux disease) K21.9 BPH (benign prostatic hyperplasia) N40.0 Time Spent (min) 25
[2022-02-12] MEDS ORDERED: HEPARIN STOP ORDER ONE (20:15)
[2022-02-12] MEDS: APIXABAN 5 MG TABLET PO SCH (20:52)
[2022-02-12 22:04] LABS: Partial Thromboplastin Ratio 1.6
--- NOTE | 2022-02-13 06:24 | Billing Data ---
Date of Service February 13, 2022 Coding Level of Care Code 33902 Initial Inpt Care Lvl 3
[2022-02-13 07:05] LABS: Hematocrit (blood only) 39.3 % (40.1-51.0); Hemoglobin 13.2 g/dl (14.0-18.0); Mean Platelet Volume 9.9 fL (9.4-12.4); Platelet Count 122 K/uL (130-400); White Blood Count 3.99 K/ul (4.8-10.8)
[2022-02-13 07:30] LABS: BUN Creatinine Ratio 15.4 (10-20); Calcium 8.8 mg/dl (8.5-10.1); Creatinine Clr Calc Pharmacy 99.3 ml/min; Est GFR (African American) 103.1 ml/min; Est GFR (Non-African American) 88.9 ml/min; Potassium 3.8 mmol/L (3.5-5.1)
[2022-02-13 08:00] LABS: Mean Corpuscular Hemoglobin 31.2 pg (25.0-34.0); Mean Corpuscular Hgb Conc 33.6 g/dL (32.0-36.0); Mean Corpuscular Volume 92.9 fL (80.0-100.0); RDW Coefficient of Variation 12.9 % (11.5-14.5); RDW Standard Deviation 43.9 fL (36.4-46.3); Red Blood Count 4.23 M/uL (4.63-6.08)
[2022-02-13] MEDS: ALFUZOSIN HCL 10 MG TAB PO SCH (08:22)
[2022-02-13] MEDS: APIXABAN 5 MG TABLET PO SCH ×2 (08:22→20:02)
[2022-02-13] MEDS: FINASTERIDE 5 MG TAB PO SCH (08:23)
[2022-02-13] MEDS: PANTOprazole 40 MG TAB PO SCH (08:23)
[2022-02-13] MEDS: ATORVASTATIN 20 MG TAB PO SCH (20:02)
--- NOTE | 2022-02-13 21:17 | Hospitalist Progress Note ---
Date of Service February 13, 2022 Assessment & Plan (1) Bilateral pulmonary embolism: Plan: CTA chest showed extensive acute-appearing pulmonary emboli with findings suggestive of associated right heart strain. ?Provoked due to recent COVID-19 infection. However patient had h/o bilateral PEs in 2012 without clear provoking factor at that time. - check TTE - continue Heparin gtt (was given WITHOUT bolus) - ordered hypercoagulability panel (note: blood was drawn BEFORE initiation of Heparin) - consider DOAC vs Lovenox for long-term anti-coagulation, especially considering h/o traumatic brain bleed (see below) - utilize supplemental O2 as needed to maintain sats >90% -Patient is now on nasal cannula, -started Eliquis on 02/12 PM. Tolerating on 02/13 Patient remains on 2 liters nasal cannula. Will obtain a 2 step on 02/14 with anticipation of discharge. Given that his first episode of DVT and P/E was provoked as per patient, and this episode is provoked by COVID. Patient likely will not require life long treatment of anticoagulation. Patient is anxious to stop blood thinners after finishing treatment. (2) H/O traumatic subdural hematoma: Plan: History of, in 2019 due to accidental head injury, s/p endovascular embolization of left middle meningeal artery at [place]. 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 - Heparin gtt as stated above - will stop q2h of neuro checks. (3) History of COVID-19: Plan: History of, diagnosed 3 weeks ago. Has had cough and SOB for last several weeks likely due to PEs. May have provoked PEs as stated above. - COVID-19 test is ordered. (4) Methylenetetrahydrofolate reductase deficiency: Plan: History of. Does not confer increased clotting risk, per last Hematology note. - hypercoagulability panel as stated above (5) Hypokalemia: Plan: K 3.4. Replete with PO K. (6) Hyperlipidemia: Plan: Chronic, continue home Atorvastatin. (7) GERD (gastroesophageal reflux disease): Plan: Chronic, with hiatal hernia per imaging. Controlled on PPI - use Protonix while here. (8) BPH (benign prostatic hyperplasia): Plan: Chronic, continue home Alfuzosin and Finasteride Plan FEN/GI: regular diet DVT Prophylaxis: Heparin gtt Code Status: full code Disposition: PCU Admission and Anticipated Discharge Date Admission Date: February 11, 2022 Subjective Patient reports feeling better. Concerned over the lack of need for testing with Eliquis. However he was reassured. Review of Systems Review of Systems: All systems reviewed & are unremarkable except as noted in HPI & below Physical Exam Physical Exam: General: A&Ox3. NAD. Cooperative. HEENT: Atraumatic, normocephalic. Pulm: CTAB A&P. -wheezes, -rales, -rhonchi. Symmetrical chest rise. No increase work of breathing. No respiratory distress. Cardiac: RRR, -mrg. Radial pulses intact and symmetrical. No LE edema. Abdominal: soft, non-tender, non-distended, BS x 4 Skin: warm, dry, no rash Results & Data Results & Data ([facility]) Vital Signs (Past 12 Hours) Vital Signs Temp Pulse Resp BP Pulse Ox O2 Del Method O2 Flow Rate 02/13/22 20:05 Nasal Cannula 2 02/13/22 19:47 36.6 C 90 18 162/82 H 95 Nasal Cannula 2 02/13/22 15:38 37.0 C 87 18 129/81 93 Nasal Cannula 2.0 02/13/22 11:38 36.9 C 97 H 18 141/83 H 94 Nasal Cannula 2.0 PG Care Time/CCT Total # of Minutes Spent Total Time Spent with Patient: Total time spent is greater than 50% in coordination of care (as documented) at patient's floor/unit and/or counseling patient: Coding Level of Care Code 99275 Subseq Hosp Care Lvl 3 Diagnoses Bilateral pulmonary embolism I26.99 H/O traumatic subdural hematoma Z87.828 History of COVID-19 Z86.16 Methylenetetrahydrofolate reductase deficiency E72.12 Hypokalemia E87.6 Hyperlipidemia E78.5 GERD (gastroesophageal reflux disease) K21.9 BPH (benign prostatic hyperplasia) N40.0 Time Spent (min) 35
[2022-02-14] MEDS: PANTOprazole 40 MG TAB PO SCH (09:11)
[2022-02-14] MEDS: APIXABAN 5 MG TABLET PO SCH (09:11)
[2022-02-14] MEDS: FINASTERIDE 5 MG TAB PO SCH (09:11)
[2022-02-14] MEDS: ALFUZOSIN HCL 10 MG TAB PO SCH (09:11)
--- NOTE | 2022-02-14 10:48 | Hospitalist Progress Note ---
Date of Service February 14, 2022 Assessment & Plan (1) Bilateral pulmonary embolism: (2) H/O traumatic subdural hematoma: (3) History of COVID-19: (4) Methylenetetrahydrofolate reductase deficiency: (5) Hypokalemia: (6) Hyperlipidemia: (7) GERD (gastroesophageal reflux disease): (8) BPH (benign prostatic hyperplasia): Admission and Anticipated Discharge Date Admission Date: February 11, 2022 Results & Data Results & Data ([facility]) Vital Signs (Past 12 Hours) Vital Signs Temp Pulse Pulse Resp BP Pulse Ox Pulse Ox 02/14/22 08:00 36.4 C L 93 H 18 132/78 97 02/14/22 03:04 36.8 C 91 H 18 124/71 90 02/14/22 00:06 83 02/14/22 00:06 94 02/13/22 23:01 36.8 C 81 18 121/70 94 O2 Del Method O2 Del Method O2 Flow Rate O2 Flow Rate 02/14/22 08:00 Nasal Cannula 2.0 02/14/22 03:04 Nasal Cannula 2 02/14/22 00:06 02/14/22 00:06 Nasal Cannula 2 02/13/22 23:01 Nasal Cannula 2 PG Care Time/CCT Total # of Minutes Spent Total Time Spent with Patient: Total time spent is greater than 50% in coordination of care (as documented) at patient's floor/unit and/or counseling patient: Coding Diagnoses Bilateral pulmonary embolism I26.99 H/O traumatic subdural hematoma Z87.828 History of COVID-19 Z86.16 Methylenetetrahydrofolate reductase deficiency E72.12 Hypokalemia E87.6 Hyperlipidemia E78.5 GERD (gastroesophageal reflux disease) K21.9 BPH (benign prostatic hyperplasia) N40.0
--- NOTE | 2022-02-15 11:33 | Discharge Summary ---
Date of Service February 14, 2022 Admission HPI Per Admitting Provider Chief Complaint: referred by doctor Primary Care Provider: Izabel Godfrey MD Santiago Bell is a 76yo male with PMHx significant for previous bilateral PE (in 2013, was on Warfarin until 2019), h/o traumatic subdural hematoma (in 2019 due to accidental head injury, s/p endovascular embolization of left middle meningeal artery at [place]), HTN, HLD, GERD, and BPH. He presented to [facility] ED on 02/11 due to progressive cough and dyspnea on exertion x2-3 weeks, following COVID-19 infection 3 weeks ago. Denies recent travel, long car/plane ride, recent surgery, prolonged bedrest, or trauma. Patient reports that he had bilateral PEs in 2013 that "affected 40% of his lungs". He reports that a large bale of hay fell on his leg ~1 month before the PEs. He was hospitalized at that time and started on Heparin --> Warfarin. He had taken that until 2019 when a farming tool fell on his head and he sustained a traumatic subdural hematoma, requiring endovascular correction at [facility] as stated above. Initially anti-coagulation was understandably stopped but of note patient saw Neurosurgery after the hospitalization and was told he can re-start Warfarin. Additionally patient also saw Hematology at that time and was recommended to re- start Warfarin as well, given ?unprovoked nature of previous PEs. However elected to NOT re-start anti-coagulation at that time. Patient denies fever/chills, nasal congestion, runny nose, chest pain, N/V, abdominal pain, diarrhea or rash. He is a never smoker, denies alcohol use and denies drug use. 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 In the ED the patient was tachycardic to 115 and hypertensive to 169/95; no hypoxia. Labs including CBC/INR/PT/PTT/CMP/hsTrop all unremarkable besides for K 3.4. CXR showed cardiomegaly as well as hiatal hernia, and CTA chest showed extensive acute-appearing pulmonary emboli with findings suggestive of associated right heart strain, as well as large hiatal hernia. In ED patient was given Albuterol nebs x1, Benzonatate PO x1 and NSS 1L bolus. He was also started on Heparin gtt WITHOUT bolus. Admission Exam Per Admitting Provider General: A&Ox3. NAD. Cooperative. HEENT: Atraumatic, normocephalic. Pulm: CTAB A&P. -wheezes, -rales, -rhonchi. Symmetrical chest rise. No increase work of breathing. No respiratory distress. Cardiac: RRR, -mrg. Radial pulses intact and symmetrical. No LE edema. Abdominal: soft, non-tender, non-distended, BS x 4 Skin: warm, dry, no rash Principal Diagnosis Bilateral pulmonary emboli Discharge Exam Constitutional WD/WN, vitals as above Respiratory normal respiratory effort, lungs clear to auscultation Cardiovascular RRR, no murmur, no edema Gastrointestinal (Abdomen) normal bowel sounds, soft, nontender, no hepatosplenomegaly Psychiatric A+Ox3, euthymic affect Discharge Data Allergies Allergy/AdvReac Type Severity Reaction Status Date / Time No Known Allergies Allergy Verified 02/11/22 14:31 Consultations 02/11/22 22:59 ED Decision to Admit Stat Ordered Studies 02/11/22 18:44 CT angio chest PE protocol Stat IMPRESSION: 1. Extensive acute-appearing pulmonary emboli with findings suggestive of associated right heart strain. 2. Large hiatal hernia with trace associated fluid adjacent to the hernia sac. Hospital Course (1) Bilateral pulmonary embolism: Santiago Bell is a 76 year old male with recent COVID-19 infection admitted to [facility] from February 11 - 2021 due to shortness of breath. He was diagnosed with bilateral pulmonary emboli provoked from recent COVID-19 infection. Hypercoagulable panel taken on admission and pending on discharge. Since this is his second pulmonary emboli recommend lifelong treatment with anticoagulation. He was treated with intravenous heparin during his inpatient stay and was weaned off oxygen. 6 minute walk test on discharge showed he is no longer requiring oxygen. He was switched to Eliquis which was also prescribed on discharge. Please follow up with hypercoagulable panel results and consider referral to hematology if any are abnormal. Incidental note of large hiatal hernia - he is currently taking daily omeprazole. Consider referral to gastroenterology given esophagitis noted and he will need lifelong anticoagulation. (2) H/O traumatic subdural hematoma: (3) History of COVID-19: (4) Methylenetetrahydrofolate reductase deficiency: (5) Hypokalemia: (6) Hyperlipidemia: (7) GERD (gastroesophageal reflux disease): (8) BPH (benign prostatic hyperplasia): Total Time Total Time Spent Total Time Spent (In Minutes): 35 Discharge Plan Discharge Items Patient Disposition: Home - Self-Care Reason For Visit: BILATERAL PES Discharge Diagnosis: Pulmonary embolism Activity: Resume your previous activity Non-emergency contact: Primary Care Provider Call non-emergency contact if: you have any medication questions and your symptoms worsen Follow-up/Referrals: Izabel Godfrey MD [Primary Care Provider] - Diet: Regular Addtl Attending Provider Instructions: You were admitted to [facility] from February 11 - 2021 due to shortness of breath. You were diagnosed with bilateral pulmonary emboli secondary to recent COVID-19 infection. Given this is your second pulmonary embolism recommend lifelong treatment with anticoagulation. You were treated with intravenous heparin during your inpatient stay; switched to Eliquis on discharge. Hypercoagulable lab work has been sent. Please follow up with your primary care provider regarding results of this and consider referral to hematology if any are abnormal. Pending Studies at Discharge: Yes (hypercolaguable workup) Stand-Alone Forms: My [facility], Smoking Cessation Medications and DC Order Prescriptions: New apixaban 5 mg tablet See Rx Instructions .ROUTE .COMPLEX 30 Days Qty: 70 0RF Rx Instructions: take 10mg PO BID for first 5 days, then 5mg PO BID Continued omeprazole magnesium [Prilosec OTC] 20 mg tablet,delayed release (DR/EC) 20 mg PO DAILY Qty: 30 11RF atorvastatin 20 mg tablet 20 mg PO QPM Qty: 90 3RF finasteride [Proscar] 5 mg tablet 5 mg PO DAILY Qty: 90 3RF alfuzosin [Uroxatral] 10 mg tablet extended release 24 hr 10 mg PO DAILY Qty: 90 3RF diclofenac sodium 1 % gel 2 g topical DIRECTED PRN (Reason: Joint Pain) Rx Instructions: APPLY PER LABELED INSTRUCTIONS Discharge Orders: Discharge Order (Routine); Ordered 02/14/22 Ordered By: Simone Jurado/Other Patient Handouts: Pulmonary Embolism, Anticoagulants Admission Data Admit Date/Time: 02/11/22 23:03 Attending Provider: Simone Morfin Admit Provider: Malcolm Jenkins Primary Care Provider: Izabel Godfrey Other Providers: Marco Muñiz Other Interventions: Discharge Summary Assessment (RN) Last Done: 02/14/22 16:01 Coding Level of Care Code D/C DAY MANAGEMENT >30 MINS Diagnoses Bilateral pulmonary embolism I26.99 H/O traumatic subdural hematoma Z87.828 History of COVID-19 Z86.16 Methylenetetrahydrofolate reductase deficiency E72.12 Hypokalemia E87.6 Hyperlipidemia E78.5 GERD (gastroesophageal reflux disease) K21.9 BPH (benign prostatic hyperplasia) N40.0
[2022-02-16 07:23] LABS: Anti Cardiolipin Ab IgG <2.0 GPL-U/mL; Anti Cardiolipin Ab IgM <2.0 MPL-U/mL; Anti-Thrombin III Activity 81 % normal (80-135); PTT LA Screen 31 sec (<=40)
[2022-02-21 07:58] LABS: B2 Glycoprotein IgG <2.0 U/mL (<20.0); B2 Glycoprotein IgM <2.0 U/mL (<20.0); Protein S Functional(Activity) 84 % normal (70-150)
[2022-02-21 20:22] LABS: Factor 5 Mutation NEGATIVE
== END 2022-02-14 16:33 | disposition home or self-care (01) | DRG 176 ==
LOC: ED 16:04 → SUATTDRO 23:03 → EDINP 23:03 → 2S 02-12 15:28